=== PATIENT | female | born 2000 | race Two or more races ===

== ENCOUNTER 2023-12-15 10:32 | Emergency (ER) | payer MEDICAID ==
[~2023-12-15] VITALS: Ht 157.5 cm; Wt 69.5 kg
[2023-12-15 12:01] VITALS: BP 109/62; PULSE 98; RESP 16; TEMP 99.1; O2SAT 98
[2023-12-15] MEDS ORDERED: TRANEXAMIC ACID 1,000 MG in SODIUM CHL 0.9% 100 ML IV ONE (12:45)
[2023-12-15] MEDS ORDERED: CEPH500C PO (13:44)
== END 2023-12-15 13:53 | disposition home or self-care (01) ==
LOC: ER 10:32
DX: S61.216A Laceration without foreign body of right little finger without damage to nail, initial encounter (principal); W25.XXXA Contact with sharp glass, initial encounter; Y93.E9 Activity, other interior property and clothing maintenance; Y92.89 Other specified places as the place of occurrence of the external cause; Y99.8 Other external cause status
CPT/HCPCS: 12002